=== PATIENT | male | born 1980 | race African-American/Black ===

== ENCOUNTER 2016-11-09 20:01 | Emergency (ER) ==
[2016-11-09 20:08] VITALS: BP 111/69
[2016-11-09] MEDS ORDERED: DIPHTHERIA/TETANUS ADULT IM ONE (20:46)
--- NOTE | 2016-11-09 20:48 | PROVIDER DOCUMENTATION ---
HPI-Rash/Wound/ReCheck <Basilio Pascual - Last Filed: 11/09/16 20:46> - General Source: patient - History of Present Illness-Dermatology Location: reports: other (LEFT INDEX FINGER) Quality: reports: painful Severity: reports: mild Onset/Duration: reports: 24 hours ago Timing: reports: still present Context/Associated Symptoms: reports: stab wound, edema, fever, tender area, other (MILD STIFFNESS). denies: laceration, abrasion, bruising/hematoma Identifiable cause?: Yes (STABBED BY SMALL PIECE OF METAL AT WORK YESTERDAY) Exposure: denies: allergen exposure, enviromental allergen exposure Modifying Factors: worse with: antihistamine Locality of Occurance: Work Similar Symptoms Previously?: No Recently seen or treated by another doctor?: No <Rocío Huerta - Last Filed: 11/09/16 21:14> - General Chief Complaint: Extremity Injury Stated Complaint: FINGER SWELLING Time Seen by Provider: 11/09/16 20:27 Allergies/Adverse Reactions: Allergies Allergy/AdvReac Type Severity Reaction Status Date / Time bee venom protein (honey bee) Allergy SWELLING Verified 11/09/16 20:09 Home Medications: Home Medication List Medication Instructions Recorded Confirmed Last Taken Type Sulfamethoxazole/Trimethoprim 1 each PO BID #10 tablet 11/09/16 Unknown Rx [Bactrim Ds Tablet] - History of Present Illness-Dermatology Nature of Presenting Problem: PT IS A 35YOM PRESENTING TO THE ED C/O LEFT FINGER SWELLING. PT STATES WAS AT WORK AND STABBED HIS LEFT INDEX FINGER WITH A SMALL PIECE OF METAL. TODAY IT IS RED, SWOLLEN, MILD PAIN AND STIFF. TO TOUCH IT IS WARMER THAN HIS OTHER FINGERS BUT PT MAINLY CAME FOR A TETANUS SHOT STATING ITS BEEN WELL OVER 10YRS SINCE HIS LAST ONE. NO OTHER COMPLAINTS OR FB NOTED IN FINGER (Rocío Huerta) Review of Systems - Adult - REVIEW OF SYSTEMS - ADULT Constitutional: reports: no symptoms reported Eyes: reports: no symptoms reported Ears, Nose, Mouth & Throat: reports: no symptoms reported Cardiovascular: reports: no symptoms reported Respiratory: reports: no symptoms reported Gastrointestinal: reports: no symptoms reported Genitourinary: reports: no symptoms reported Musculoskeletal: reports: see HPI, joint swelling, other (LEFT INDEX FINGER, MILD EDEMA, STIFFNESS AND REDNESS WITH MINIMAL PAIN) Integumentary: reports: no symptoms reported Neurological: reports: no symptoms reported Psychiatric: reports: no symptoms reported Endocrine: reports: no symptoms reported Hematologic/Lymphatic: reports: no symptoms reported Allergic/Immunologic: reports: no symptoms reported All Other Systems: Reviewed and Negative <Rocío Huerta - Last Filed: 11/09/16 21:14> Past History - Adult - PAST MEDICAL HISTORY-ADULT Major Childhood Illnesses: reports: denies history - PRIOR SURGERIES/PROCEDURES Surgical/Procedure History: reports: none - IMMUNIZATION STATUS Childhood Immunizations: See Nurse Assessment Flu Vaccine: See Nurse Assessment <LuishaiBasilio CamachoYasir - Last Filed: 11/09/16 20:46> - PAST MEDICAL HISTORY-ADULT Review of Records: reports: Old Records Reviewed, Nursing Assessment Review, Medications Reviewed, Social history reviewed & non-contributory. Major Childhood Illnesses: reports: denies history Cardiovascular: reports: denies history Respiratory: reports: denies history Gastrointestinal: reports: denies history Obstetrical/Gynecological: reports: denies history Genitourinary: reports: denies history Musculoskeletal: reports: denies history Neurological: reports: denies history Endocrine/Immune: reports: denies history Other Conditions: reports: denies history - IMMUNIZATION STATUS Childhood Immunizations: See Nurse Assessment Flu Vaccine: See Nurse Assessment - FAMILY HISTORY Family History: reviewed, not pertinent - SOCIAL HISTORY Smoking: cigarettes, greater than 1 pack/day Provider spent 3-5 mins advising pt. on dangers of tobacco.: Discussed manners to quit use, and f/u contacts for add'l counseling. Substance Use: none/never, alcohol Alcohol Use Frequency: occasionally Number of drinks per typical drinking period:: 3-4 drinks Living Situation: family <Rocío Huerta - Last Filed: 11/09/16 21:14> Physical Exam-General - PHYSICAL EXAM-ADULT Initial Vital Signs Reviewed: Yes - CONSTITUTIONAL General Appearance: appears well, alert, mild distress - EYES Eyes: PERRL/EOMI, pink conjunctivae, fundi clear, no AV nicking - HEAD, EARS, NOSE, MOUTH & THROAT HENMT: normocephalic/atraumatic, moist mucous membranes, normal ENT inspection, TMs normal, pharynx normal - NECK Neck: non-tender, full range of motion, supple, normal inspection - RESPIRATORY Respiratory: chest non-tender, lungs clear, normal breath sounds, no pleuratic chest pain, no respiratory distress, no accessory muscle use - CARDIOVASCULAR Cardiovascular: normal peripheral pulses, regular rate, rhythm, no edema, no gallop, no JVD, no murmur - GASTROINTESTINAL (ABDOMEN) Abdominal Exam: normal bowel sounds, non tender, soft, no organomegaly, no pulsatile mass - LYMPHATIC Lymphatic: no adenopathy - MUSCULOSKELETAL Back Exam: normal inspection, no CVA tenderness, no vertebral tenderness Extremity: normal range of motion, normal gait, no pedal edema, no calf tenderness, normal capillary refill, swelling, tenderness (LEFT INDEX). 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, grossly normal, no motor/sensory deficits - PSYCHIATRIC Psych/Mental Status: normal mood/affect, normal thought content, normal thought process, oriented x 3 <Rocío Huerta - Last Filed: 11/09/16 21:14> Progress <Basilio Pascual - Last Filed: 11/09/16 20:46> <Rocío Huerta - Last Filed: 11/09/16 21:14> - PLAN OF CARE/RESULTS Progress/Plan/Lab Results: Orders Category Date Time Status Diphtheria/Tetanus Adult Med 11/09/16 20:46 Discontinued 0.5 ml IM .ONCE ONE Vital Signs - 24 hr 11/09/16 20:05 Temperature 97.7 F Pulse Rate 63 Respiratory 16 Rate Blood Pressure 111/69 O2 Sat by Pulse 100 Oximetry (Rocío Huerta) Departure - Departure Time of Disposition Order: 20:46 Certified Medical Emergency: Emergent <Basilio Pascual - Last Filed: 11/09/16 20:46> - Departure Time of Disposition Order: 21:14 Certified Medical Emergency: Emergent <Rocío Huerta - Last Filed: 11/09/16 21:14> - Departure DIAGNOSIS: Cellulitis and abscess of finger, unspecified Disposition: HOME 01 Condition: Stable Additional Instructions: ED Follow Up Instructions: You have been treated by a care provider in the Emergency Department. These instructions are being provided to you so you can have an understanding of how to care for yourself upon discharge. Upon discharge from the Emergency Department, you are responsible for making arrangements for follow-up care by a physician of your choice. Take all prescribed medications as directed. Return to the Emergency Department immediately for any new or worsening symptoms. You may call the Physician Referral phone number at [phone] to obtain a list of Physicians who are taking new patients. Prescriptions: Sulfamethoxazole/Trimethoprim [Bactrim Ds Tablet] 1 each PO BID #10 tablet Referrals: Michael Sanchez MD [STAFF PHYSICIAN] - None,PCP [Primary Care Provider] - Forms: Return to School/Parent Work Instructions: Abscess, Cellulitis, Sulfamethoxazole; Trimethoprim, SMX-TMP tablets Attestation - Scribe Verification/Attestation Scribe:: Rocío Huerta Acting as Scribe for:: Basilio Pascual Scribe documention review:: This chart was documented by a scribe and accurately reflects the service the provider performed and the decisions made by the provider. <Rocío Huerta - Last Filed: 11/09/16 21:14> Physician Attestation - Physician Attestation I, the provider, attest to the following statement:: Basilio Pascual Physician documentation Attestation:: This documentation recorded by the scribe accurately reflects the service I personally performed and the decisions made by me. <Rocío Huerta - Last Filed: 11/09/16 21:14>
== END 2016-11-09 21:16 | disposition home or self-care (01) ==
LOC: P.ED 20:01
DX: L03.012 Cellulitis of left finger (principal); L02.512 Cutaneous abscess of left hand; M79.645 Pain in left finger(s); M25.642 Stiffness of left hand, not elsewhere classified; R60.0 Localized edema; L53.9 Erythematous condition, unspecified; F17.210 Nicotine dependence, cigarettes, uncomplicated; Z23 Encounter for immunization; Z71.6 Tobacco abuse counseling; W45.8XXA Other foreign body or object entering through skin, initial encounter
CPT/HCPCS: 90471; 90714